=== PATIENT | female | born 1955 | race Hispanic/Latino ===

== ENCOUNTER 2017-05-02 18:06 | Emergency (ER) | payer MEDICARE ==
[~2017-05-02 18:06] MED LIST: LEVO175T4 PO; LISI40TA4 PO; LORA-705 PO; [UNRECOGNIZED DRUG - OTHER] PO
[2017-05-02] MEDS ORDERED: KETOROLAC TROMETHAMINE 30MG/ML ONE (18:40)
[2017-05-02] MEDS ORDERED: DEXAMETHASONE SOD PHOSPHATE 10MG/ML 1ML VIAL ONE (18:40)
== END 2017-05-02 19:32 | disposition home or self-care (01) ==
LOC: EDH 18:06
DX: M19.042 Primary osteoarthritis, left hand (principal); I10 Essential (primary) hypertension; E03.9 Hypothyroidism, unspecified; Z88.6 Allergy status to analgesic agent
CPT/HCPCS: 73140; 96372 ×2; 99284; J1100; J1885

== ENCOUNTER → 2018-11-09 | Outpatient (CLI) | payer OTHER ==
[~2018-11-09] MED LIST changes: +ACET-2247 PO; -LEVO175T4 PO; +LEVO200T5 PO; -LORA-705 PO; +OMEP40CA37 PO; +PRED20TA3 PO; -[UNRECOGNIZED DRUG - OTHER] PO
== END | disposition home or self-care (01) ==
LOC: OIH 14:01
PROVIDERS: ATTEND Internal Medicine
DX: M51.36 Other intervertebral disc degeneration, lumbar region (principal); M47.814 Spondylosis without myelopathy or radiculopathy, thoracic region; M85.88 Other specified disorders of bone density and structure, other site
CPT/HCPCS: 72070; 72100

== ENCOUNTER → 2019-09-18 | Outpatient (CLI) | payer OTHER ==
[~2019-09-18] MED LIST changes: +OMEP40CA13 PO; -OMEP40CA37 PO
--- NOTE | 2019-09-18 11:00 | NUR ---
[facility] COMPLETED PENETRATION WITH THIN AT THIS TIME. RECOMMENDED REGULAR SOLIDS, NECTAR THICK LIQUIDS AND THIN PLEASURE FEEDINGS, PILLS WHOLE WITH LIQUIDS TOLERATED. PORCELAIN TECHNICIAN REVIEWED RESULTS AND RECOMMENDATIONS WITH Pt. PORCELAIN TECHNICIAN PROVIDED Pt WITH A CAN OF THICKENER AND DEMONSTRATED HOW TO REACH NECTAR THICK CONSISTENCIES. PORCELAIN TECHNICIAN EDUCATED Pt ON RISKS AND CONSEQUENCES OF ASPIRATION. ALL QUESTIONS ANSWERED AT THIS TIME. Addendum: 09/18/[address] [facility] Amended: Links added.
== END | disposition home or self-care (01) ==
LOC: RAH 10:21
PROVIDERS: ATTEND Internal Medicine
DX: R13.12 Dysphagia, oropharyngeal phase (principal); G47.33 Obstructive sleep apnea (adult) (pediatric); K00.7 Teething syndrome; R05 Cough; R63.3 Feeding difficulties
CPT/HCPCS: 74230; 92611

== ENCOUNTER → 2020-02-11 | Outpatient (CLI) | payer OTHER | END | disposition home or self-care (01) | LOC: OIH 13:34 | PROVIDERS: ATTEND Internal Medicine | DX: M47.814 Spondylosis without myelopathy or radiculopathy, thoracic region (principal); I10 Essential (primary) hypertension | CPT/HCPCS: 71046 ==

== ENCOUNTER → 2021-04-02 | Outpatient (CLI) | payer OTHER ==
[~2021-04-02] MED LIST changes: -LISI40TA4 PO; +LISI40TA9 PO; -OMEP40CA13 PO; +OMEP40CA21 PO
== END | disposition home or self-care (01) ==
LOC: RAH 15:21
PROVIDERS: ATTEND Internal Medicine
DX: J44.9 Chronic obstructive pulmonary disease, unspecified (principal); M47.815 Spondylosis without myelopathy or radiculopathy, thoracolumbar region
CPT/HCPCS: 71046

== ENCOUNTER → 2021-05-27 | Outpatient (CLI) | payer OTHER | END | disposition home or self-care (01) | LOC: RAH 14:09 | PROVIDERS: ATTEND Internal Medicine | DX: E89.0 Postprocedural hypothyroidism (principal) | CPT/HCPCS: 76536 ==

== ENCOUNTER 2021-08-11 14:33 | Emergency (ER) | payer OTHER ==
[~2021-08-11] VITALS: Ht 154.9 cm; Wt 95.3 kg
[2021-08-11 14:38] VITALS: BP 163/57
[2021-08-11] MEDS ORDERED: CYCLOBENZAPRINE HCL 10 MG TABLET PO SCH (15:00)
[2021-08-11] MEDS ORDERED: DEXAMETHASONE 4 MG TAB PO SCH (15:00)
[2021-08-11] MEDS ORDERED: HYDROCODONE/ACETAMINOPHEN 10/325 MG TAB PO SCH (15:00)
[2021-08-11] MEDS ORDERED: CYCL10TA16 PO (15:06)
[2021-08-11] MEDS ORDERED: DEXA6TAB7 PO (15:06)
[2021-08-11] MEDS ORDERED: NAPR-1180 PO (15:06)
[2021-08-11 15:23] LABS: APPEARANCE,URINE Clear (CLEAR); BILIRUBIN,URINE Negative (NEGATIVE); COLOR,URINE Yellow (YELLOW); GLUCOSE, URINE (UA) Negative (NEGATIVE); KETONES,URINE Negative (NEGATIVE); LEUKOCYTE ESTERASE ,URINE Negative (NEGATIVE); NITRATE,URINE Negative (NEGATIVE); OCCULT BLOOD,URINE Negative (NEGATIVE); PROTEIN,URINE Negative (NEGATIVE)
== END 2021-08-11 15:43 | disposition home or self-care (01) ==
LOC: EDH 14:33
DX: M54.42 Lumbago with sciatica, left side (principal); E66.9 Obesity, unspecified; Z68.39 Body mass index [BMI] 39.0-39.9, adult; I10 Essential (primary) hypertension; E03.9 Hypothyroidism, unspecified; Z88.8 Allergy status to other drugs, medicaments and biological substances; Z88.6 Allergy status to analgesic agent; Z79.899 Other long term (current) drug therapy; Z90.49 Acquired absence of other specified parts of digestive tract; Z98.890 Other specified postprocedural states
CPT/HCPCS: 81003; J8540

== ENCOUNTER → 2022-11-15 | Outpatient (CLI) | payer OTHER ==
[~2022-11-15] MED LIST changes: +CYCL10TA16 PO; +DEXA6TAB7 PO; +NAPR-1180 PO
[2022-11-15 12:31] LABS: CREATININE 0.9 mg/dL (0.5-1.5)
== END | disposition home or self-care (01) ==
LOC: LAB 11:25
PROVIDERS: ATTEND Internal Medicine
DX: R10.9 Unspecified abdominal pain (principal); R10.2 Pelvic and perineal pain
CPT/HCPCS: 36415; 82565; 84520

== ENCOUNTER → 2022-11-26 | Outpatient (CLI) | payer OTHER ==
[~2022-11-26] MED LIST changes: +IOHEXOL-350 75 ML VIAL IV ONE
== END | disposition home or self-care (01) ==
LOC: RAH 09:30
PROVIDERS: ATTEND Internal Medicine
DX: R16.0 Hepatomegaly, not elsewhere classified (principal); R10.2 Pelvic and perineal pain; R10.9 Unspecified abdominal pain; N32.89 Other specified disorders of bladder; M47.815 Spondylosis without myelopathy or radiculopathy, thoracolumbar region
CPT/HCPCS: 74177; Q9967